=== PATIENT | female | born 1955 | race Caucasian/White ===

== ENCOUNTER → 2024-04-27 15:57 | Outpatient (REF) | payer MEDICARE, SELFPAY | LOC: MRI 3T 15:57 | PROVIDERS: ATTENDING PHYSICIAN Family Medicine | DX: M25.511 Pain in right shoulder (principal); M25.611 Stiffness of right shoulder, not elsewhere classified | CPT/HCPCS: 73221 ==

== ENCOUNTER → 2025-03-11 15:10 | Outpatient (REF) | payer MEDICARE, SELFPAY | LOC: RAD 15:10 | PROVIDERS: ATTENDING PHYSICIAN Internal Medicine Rheumatology; FAMILY PHYSICIAN Family Medicine | DX: M02.3 Reiter's disease (principal); M15.9 Polyosteoarthritis, unspecified; M65.331 Trigger finger, right middle finger; M79.643 Pain in unspecified hand; M25.562 Pain in left knee | CPT/HCPCS: 73130; 73560 ==

== ENCOUNTER → 2025-04-16 15:54 | Outpatient (REF) | payer MEDICARE, SELFPAY | LOC: RCS 15:54 | PROVIDERS: ATTENDING PHYSICIAN Family Medicine | DX: R01.1 Cardiac murmur, unspecified (principal); M25.552 Pain in left hip | CPT/HCPCS: 73502; 93306 ==